=== PATIENT | male | born 1955 | race Caucasian/White ===

== ENCOUNTER 2020-06-30 10:28 | Day surgery (SDC) | payer MEDICARE ==
[2020-06-23 13:23] VITALS: BMI 23.6
[~2020-06-30 10:28] MED LIST: LACTATED RINGERS 1,000 ML IV SCH; LIDOCAINE 1% (10MG/ML) FOR IV START INTRADERMA PRN
[2020-06-30 10:53] VITALS: RESP 18; TEMP 97.9
[2020-06-30] MEDS ORDERED: PROPOFOL 10 MG/ML 20 ML VIAL IV ONE (11:21)
[2020-06-30] MEDS ORDERED: LIDOCAINE 1% INJ 10MG/ML (20 ML MDV) ONE (11:21)
--- NOTE | 2020-06-30 11:25 | P.GSHP ---
History of Present Illness H&P Date: 06/30/20 Chief Complaint: Abdominal pain, change in bowel habits 65-year-old male here today for upper and lower endoscopy. Had recent CAT scan showing mild thickening of the sigmoid and ascending colon. Mild abdominal discomforts at times. Frequent diarrhea and incomplete evacuation. Some upper abdominal pain at times. Past Medical History Past Medical History: Cancer, Hypertension Additional Past Medical History / Comment(s): skin cancer- had recent removal has stiches top of head. "gallbladder stones". hemorrhoid History of Any Multi-Drug Resistant Organisms: None Reported Past Surgical History: Appendectomy Additional Past Surgical History / Comment(s): skin cancer removed Past Anesthesia/Blood Transfusion Reactions: No Reported Reaction Smoking Status: Current every day smoker Medications and Allergies Home Medications Medication Instructions Recorded Confirmed Type Acetaminophen [Tylenol] 325 mg PO DAILY PRN 06/23/20 06/30/20 History Citalopram Hydrobromide 20 mg PO DAILY 06/23/20 06/30/20 History [Citalopram HBr] Furosemide [Lasix] 20 mg PO DAILY 06/23/20 06/30/20 History Olmesartan Medoxomil [Benicar] 20 mg PO 1400 06/23/20 06/30/20 History Allergies Allergy/AdvReac Type Severity Reaction Status Date / Time No Known Allergies Allergy Verified 06/30/20 11:04 Surgical - Exam Vital Signs Temp Pulse Resp BP Pulse Ox 97.9 F 111 H 18 152/91 95 06/30/20 10:52 06/30/20 10:52 06/30/20 10:52 06/30/20 10:52 06/30/20 10:52 Physical exam: General: Well-developed, well-nourished HEENT: Normocephalic, sclerae nonicteric Abdomen: Nontender, nondistended Extremities: No edema Neuro: Alert and oriented Assessment and Plan (1) Change in bowel habits Narrative/Plan: Will proceed with upper and lower endoscopy. Current Visit: Yes Status: Acute Code(s): R19.4 - CHANGE IN BOWEL HABIT SNOMED Code(s): 527175102
--- NOTE | 2020-06-30 11:47 | P.PCN ---
Date of Procedure: 06/30/20 Procedure(s) Performed: PREOPERATIVE DIAGNOSIS: Abdominal pain, GERD, change in bowel habits POSTOPERATIVE DIAGNOSIS: Gastritis, moderate sized hiatal hernia, sigmoid colon polyp 2 PROCEDURE: 1. EGD with biopsy 2. Colonoscopy with random biopsy and snare polypectomy ANESTH[place]: [facility] [place] SURGEON: Mkie Carlton M.D. SPECIMENS: Antrum, random colon, sigmoid polyp 2 ENDOSCOPIC PROCEDURE: The patient was on the endoscopy table in the left decubitus position. The Olympus gastroscope was inserted into the oropharynx and passed under direct visualization to the region of the third portion of the duodenum. From that point the scope was slowly withdrawn inspecting all surfaces carefully. There were no neoplastic inflammatory or polypoid lesions throughout the duodenum. The pylorus was widely patent. The stomach was carefully inspected. There was mild to moderate gastritis present. A biopsy of the antrum took place to rule out H. pylori. Retroflexion revealed a moderate sized hiatal hernia. Minimal inflammatory changes in the stomach above the diaphragm was noted. The esophagus was then carefully examined. There were no neoplastic inflammatory or polypoid lesions throughout the visualized esophagus. The patient was kept on the endoscopy table in the left decubitus position. The Olympus colonoscope was inserted into the anus and passed under direct visualization to the base of the cecum. The appendiceal orifice was visualized. From that point the scope was slowly withdrawn inspecting all surfaces carefully. There were no neoplastic inflammatory or polypoid lesions throughout the cecum, ascending, transverse, and descending colon. In the sigmoid colon to polyps were seen and removed using the snare with cautery technique. Random cold biopsies of the colon took place to rule out microscopic colitis. There was no visible diverticulosis. Digital rectal examination was normal. The patient was taken to the recovery room in stable condition per anesthesia guidelines. RECOMMENDATIONS: Await biopsy results. Anticipate follow-up colonoscopy 5 years.
[2020-06-30 12:07] VITALS: BP 143/79; PULSE 78
== END 2020-06-30 12:46 | disposition home or self-care (01) ==
LOC: ORWHC2ENDO 10:28
PROVIDERS: ATTEND Surgery
DX: D12.5 Benign neoplasm of sigmoid colon (principal); K64.8 Other hemorrhoids; K64.4 Residual hemorrhoidal skin tags; K29.50 Unspecified chronic gastritis without bleeding; K44.9 Diaphragmatic hernia without obstruction or gangrene; K21.9 Gastro-esophageal reflux disease without esophagitis; I10 Essential (primary) hypertension; K80.20 Calculus of gallbladder without cholecystitis without obstruction; K08.409 Partial loss of teeth, unspecified cause, unspecified class; F17.210 Nicotine dependence, cigarettes, uncomplicated; Z85.828 Personal history of other malignant neoplasm of skin; Z98.890 Other specified postprocedural states; Z87.19 Personal history of other diseases of the digestive system; Z90.49 Acquired absence of other specified parts of digestive tract; Z79.899 Other long term (current) drug therapy
CPT/HCPCS: 88305; 45380; 45385; 43239; J2001; J2704